=== PATIENT | male | born 2000 | race Caucasian/White ===

== ENCOUNTER 2019-01-06 20:24 | Emergency (ER) | payer SELFPAY ==
[~2019-01-06] VITALS: Ht 165.1 cm; Wt 72.6 kg
[2019-01-06 20:39] VITALS: Ht 165.1 cm; Wt 72.6 kg
[2019-01-06 23:12] VITALS: BP 109/62
== END 2019-01-06 23:12 | disposition home or self-care (01) ==
LOC: ED 20:24
DX: S01.512A Laceration without foreign body of oral cavity, initial encounter (principal); S00.83XA Contusion of other part of head, initial encounter; S06.9X1A Unspecified intracranial injury with loss of consciousness of 30 minutes or less, initial encounter; V43.53XA Car driver injured in collision with pick-up truck in traffic accident, initial encounter; Y93.I9 Activity, other involving external motion; Y92.413 State road as the place of occurrence of the external cause; Y99.8 Other external cause status